=== PATIENT | male | born 1985 | race Caucasian/White ===

== ENCOUNTER 2020-09-30 14:15 | Emergency (ER) | payer SELFPAY ==
[2020-09-30] MEDS ORDERED: ALBUTEROL SULFATE 2.5 MG/3 ML VIAL NEB ONE (14:40)
[2020-09-30] MEDS ORDERED: IPRATROPIUM/ALBUTEROL 3 ML VIAL INH ONE (14:40)
[2020-09-30] MEDS ORDERED: SODIUM CHLORIDE 0.9% (FLUSH) 10 ML SYG IV PRN (14:40)
--- NOTE | 2020-09-30 14:40 | ED.PDOC ---
History of Present Illness - General Chief Complaint: Respiratory Problem Stated Complaint: cough, dyspnea Time Seen by Provider: 09/30/20 14:30 Source: patient, RN notes reviewed, Vital Signs reviewed, family - Exam Limitations: no limitations - History of Present Illness Initial Comments: Patient is a 35-year-old white male who presents with worsening cough and fever for the last 2 days. Patient's fever has been as high as 1-1.7 and the cough is productive for brown sputum. He has no other sick contacts at home. Patient also complains of chest pain that started in his right chest wall but is now across his whole chest. The pain is aching and pleuritic in nature. It is worse with deep inspiration or cough. It is not associated with exertion. It does not cause any nausea or vomiting. It is not associated with any diaphoresis. The pain is waxing and waning. Symptoms are not improved by anything. Timing/Duration: getting worse, other - 2 days Severity: severe Improving Factors: nothing Worsening Factors: movement, other - cough Associated Symptoms: chest pain, cough, fever/chills, loss of appetite, malaise, shortness of breath Allergies/Adverse Reactions: Allergies NO KNOWN ALLERGY Allergy (Verified 09/30/20 14:38) Home Medications: Ambulatory Orders Albuterol Sulfate [Albuterol Sulfate Hfa] 2 puff INH Q4H #1 aer 09/30/20 Guaifenesin-Codeine [Guaifenesin AC] 10 ml PO Q6H #120 ml 09/30/20 Methylprednisolone [Medrol Dose [place]] 4 mg PO DAILY 6 Days #21 tab 09/30/20 Review of Systems - Review of Systems Constitutional: States: see HPI, chills, fever, malaise, weakness EENTM: States: no symptoms reported. Denies: eye pain, blurred vision, double vision, throat pain Respiratory: States: see HPI, cough, short of breath, wheezing. Denies: stridor Cardiology: States: see HPI, chest pain. Denies: palpitations, syncope Gastrointestinal/Abdominal: States: see HPI, nausea. Denies: abdominal pain, diarrhea, vomiting Genitourinary: States: no symptoms reported. Denies: dysuria, frequency Musculoskeletal: States: no symptoms reported. Denies: back pain, joint pain, joint swelling, neck pain Skin: States: no symptoms reported. Denies: change in color, rash Neurological: States: see HPI, weakness. Denies: headache, tingling, tremors Endocrine: States: no symptoms reported. Denies: increased hunger, increased thirst, increased urine Hematologic/Lymphatic: States: no symptoms reported All other Systems: Reviewed and Negative Family Medical History - Family History Mother Family History: Unknown Physical Exam - Physical Exam General Appearance: Alert, Anxious, Obvious distress, Well Developed, Well Groomed, Well Hydrated, Well Nourished Eye Exam: bilateral normal Ears, Nose, Throat: hearing grossly normal, sinus pain/drainage, nasal congestion, other - multiple dental caries Neck: non-tender, full range of motion, supple, normal inspection Respiratory: no accessory muscle use, decreased breath sounds, rhonchi, wheezing, other - TTP of chest wall. 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 09/30/20 16:47 Chest x-ray is unremarkable and therefore unlikely pneumonia or CHF. Covid is still pending. Remainder of labs are within normal limits. I suspect patient has a viral upper respiratory tract infection. This may be Covid or possibly a myriad of other viral URIs. Pending imbookin ([facility]) respiratory panel. Will reassess once this is completed. Patient is markedly improved after his neb treatment. If I discharge him home he will be discharged with a prescription for an albuterol inhaler. - Results/Orders Results/Orders: EXAM DESCRIPTION: Chest,1 View CLINICAL HISTORY: cough with fever COMPARISON: None available TECHNIQUE: AP portable chest FINDINGS: The lungs are clear. There is no infiltrate or effusion. The heart is normal size. IMPRESSION: Normal portable chest Electronically signed by: Brian Alvarez MD 09/30/2020 3:07 PM EKG performed 30 September 2020 at 1428 hrs.: Sinus tachycardia 105 bpm, normal axis deviation, no ST or T wave changes concerning for acute ischemia, otherwise normal EKG. No comparison EKG available at this time. 09/30/20 14:40 Sodium Chloride 0.9% (Flush) [Saline Flush Syringe] 10 ml IV PRN PRN 09/30/20 14:41 Telemetry .ONCE Pulse Oximetry Assessment DAILY 09/30/20 14:45 EKG STAT 10/01/20 09:00 Pulse Ox Daily Laboratory Results - last 24 hr 09/30/20 09/30/20 09/30/20 14:40 14:40 14:40 WBC 9.3 RBC 5.15 Hgb 16.4 Hct 46.6 MCV 90.5 MCH 31.8 H MCHC 35.2 RDW 14.1 Plt Count 256 MPV 8.3 Absolute Neuts (auto) 5.50 Absolute Lymphs (auto) 2.00 Absolute Monos (auto) 1.20 H Absolute Eos (auto) 0.50 H Absolute Basos (auto) 0.10 Neutrophils % 59.1 Lymphocytes % 21.7 Monocytes % 12.8 H Eosinophils % 5.2 H Basophils % 1.2 Sodium 138 Potassium 3.8 Chloride 102 Carbon Dioxide 24 Anion Gap 15.8 BUN 10 Creatinine 1.07 BUN/Creatinine Ratio 9.3 L Random Glucose 89 Serum Osmolality 274.2 L Lactic Acid 0.9 Calcium 8.8 Total Bilirubin 0.5 AST 17 ALT 22 Alkaline Phosphatase 74 B-Natriuretic Peptide 8.0 Serum Total Protein 7.4 Albumin 3.7 Globulin 3.7 H Albumin/Globulin Ratio 1.0 L Respiratory panel shows that the patient is positive for rhinovirus. He is Covid negative. He is influenza negative. Vital Signs 09/30/20 09/30/20 09/30/20 14:20 15:16 16:03 Temperature 97.9 F Pulse Rate [ 102 H 101 H pulse ox] Respiratory 20 20 Rate Blood Pressure 157/97 100/75 [Right Arm] O2 Sat by Pulse 97 97 98 Oximetry 09/30/20 16:16 Temperature Pulse Rate [ 98 H pulse ox] Respiratory 18 Rate Blood Pressure 143/89 [Right Arm] O2 Sat by Pulse 97 Oximetry Departure - Departure Clinical Impression: Viral upper respiratory tract infection with cough, Wheezing Time of Disposition: 17:41 Disposition: Discharge to Home or Self Care Condition: Good Departure Forms: ED Discharge - Pt. Copy, Patient Portal Self Enrollment Instructions: Viral Upper Respiratory Infection, Adult (DC) Diet: resume usual diet Activity: increase activity as tolerated Prescriptions: Albuterol Sulfate [Albuterol Sulfate Hfa] 2 puff INH Q4H #1 aer Guaifenesin-Codeine [Guaifenesin AC] 10 ml PO Q6H #120 ml Methylprednisolone [Medrol Dose [place]] 4 mg PO DAILY 6 Days #21 tab Home Medications: Ambulatory Orders Albuterol Sulfate [Albuterol Sulfate Hfa] 2 puff INH Q4H #1 aer 09/30/20 Guaifenesin-Codeine [Guaifenesin AC] 10 ml PO Q6H #120 ml 09/30/20 Methylprednisolone [Medrol Dose [place]] 4 mg PO DAILY 6 Days #21 tab 09/30/20
--- NOTE | 2020-09-30 15:08 | RAD ---
EXAM DESCRIPTION: Chest,1 View CLINICAL HISTORY: cough with fever COMPARISON: None available TECHNIQUE: AP portable chest FINDINGS: The lungs are clear. There is no infiltrate or effusion. The heart is normal size. IMPRESSION: Normal portable chest Electronically signed by: Brian Alvarez MD 09/30/2020 3:07 PM [employer]
[2020-09-30 19:20] VITALS: BP 140/77; O2SAT 96
[2020-09-30 19:21] VITALS: TEMP 98.1
== END 2020-09-30 18:00 | disposition home or self-care (01) ==
LOC: ER 14:15
DX: J06.9 Acute upper respiratory infection, unspecified (principal); R06.2 Wheezing; Z20.828 Contact with and (suspected) exposure to other viral communicable diseases
CPT/HCPCS: 71045; 80053; 83605; 83880; 85025; 87486; 87581; 87633; 87635; 93005; 94640; 94760; J7611; J7620